=== PATIENT | female | born 1985 | race Caucasian/White ===

== ENCOUNTER 2019-06-04 16:51 | Inpatient (IN) | payer OTHER ==
[~2019-06-04] VITALS: Ht 167.6 cm; Wt 73.5 kg
== END 2019-06-13 16:25 | disposition home or self-care (01) | DRG 833 ==
LOC: OBS/DEL 16:51 → OB/GYN 06-05 10:06 → LDR 06-05 10:06 → OB/GYN 06-05 10:51
PROVIDERS: ADMIT Obstetrics & Gynecology
PROC: BY4FZZZ Ultrasonography of Third Trimester, Single Fetus (ICD-10-PCS; principal; 2019-06-08)
DX: O24.414 Gestational diabetes mellitus in pregnancy, insulin controlled (principal); O40.3XX0 Polyhydramnios, third trimester, not applicable or unspecified; Z3A.28 28 weeks gestation of pregnancy; Z79.4 Long term (current) use of insulin
CPT/HCPCS: 240

== ENCOUNTER → 2019-06-25 | Outpatient (CLI) | payer OTHER | END | disposition home or self-care (01) | LOC: PRENATAL 08:00 | DX: O26.843 Uterine size-date discrepancy, third trimester (principal); O24.410 Gestational diabetes mellitus in pregnancy, diet controlled ==

== ENCOUNTER → 2019-07-23 | Outpatient (CLI) | payer OTHER | END | disposition home or self-care (01) | LOC: PRENATAL 09:10 | DX: O26.843 Uterine size-date discrepancy, third trimester (principal); O36.8131 Decreased fetal movements, third trimester, fetus 1; O24.313 Unspecified pre-existing diabetes mellitus in pregnancy, third trimester; Z36.89 Encounter for other specified antenatal screening ==

== ENCOUNTER 2019-08-12 06:00 | Inpatient (IN) | payer OTHER ==
[~2019-08-12] VITALS: Ht 170.2 cm; Wt 4.1 kg
[~2019-08-12 06:00] MED LIST: HUMULIN N100 UNIT/2 SUBCUTANEO; HUMULIN SUBCUTANEO
== END 2019-08-15 14:31 | disposition home or self-care (01) | DRG 785 ==
LOC: O/R 06:00 → SURG-SUITE 06:00 → OB/GYN 09:00 → SURG-SUITE 13:10 → PRENATAL 08-13 09:00 → EDSTATUS 08-13 09:00 → SURG-SUITE 08-15 14:31
PROVIDERS: ADMIT Obstetrics & Gynecology; ATTEND Obstetrics & Gynecology
PROC: 0UT70ZZ Resection of Bilateral Fallopian Tubes, Open Approach (ICD-10-PCS; 2019-08-12)
PROC: 4A0HXFZ Measurement of Products of Conception, Cardiac Rhythm, External Approach (ICD-10-PCS; 2019-08-12)
PROC: 10D00Z1 Extraction of Products of Conception, Low, Open Approach (ICD-10-PCS; principal; 2019-08-12 10:30)
DX: O82 Encounter for cesarean delivery without indication (principal); O24.424 Gestational diabetes mellitus in childbirth, insulin controlled; O34.211 Maternal care for low transverse scar from previous cesarean delivery; Z3A.37 37 weeks gestation of pregnancy; Z37.0 Single live birth; Z30.2 Encounter for sterilization